=== PATIENT | female | born 1945 | race Caucasian/White ===

== ENCOUNTER → 2025-01-28 | Outpatient (REF) | payer MEDICARE | LOC: RAD 12:44 | PROVIDERS: ATTEND Internal Medicine Critical Care Medicine | DX: R06.00 Dyspnea, unspecified (principal) | CPT/HCPCS: 71046 ==

== ENCOUNTER → 2025-02-04 | Outpatient (RCR) | payer MEDICARE | LOC: ST 17:23 | PROVIDERS: ATTEND Otolaryngology Otolaryngology/Facial Plastic Surgery | DX: R49.0 Dysphonia (principal); R47.1 Dysarthria and anarthria; R49.8 Other voice and resonance disorders ==

== ENCOUNTER → 2025-02-27 | Outpatient (REF) | payer MEDICARE ==
[~2025-02-27] MED LIST: IOPAMIDOL 370 MG/ML 100 ML INFUS..BTL INJ ONE
[2025-02-27 11:09] LABS: EST GLOMERULAR FILTRATION RATE 74.0 ML/MIN (>=60)
== END ==
LOC: CT 09:56
PROVIDERS: ATTEND Internal Medicine Critical Care Medicine
DX: R06.00 Dyspnea, unspecified (principal); J84.9 Interstitial pulmonary disease, unspecified; K74.60 Unspecified cirrhosis of liver; K76.6 Portal hypertension
CPT/HCPCS: 36415; 71260; 82565; 84520; Q9967